=== PATIENT | female | born 1995 | race Caucasian/White ===

== ENCOUNTER 2019-06-11 08:21 | Emergency (ER) | payer MEDICAID ==
[~2019-06-11] VITALS: Ht 154.9 cm; Wt 88.2 kg
[2019-06-11 08:26] VITALS: BP 114/80
[2019-06-11] MEDS ORDERED: AMOX500C2 PO (08:33)
[2019-06-11] MEDS ORDERED: HYDR-4383 PO (08:39)
[2019-06-11] MEDS ORDERED: IBUP-1986 PO (09:03)
== END 2019-06-11 08:58 | disposition home or self-care (01) ==
LOC: ER 08:21
DX: K08.89 Other specified disorders of teeth and supporting structures (principal)
CPT/HCPCS: 99283

== ENCOUNTER 2019-08-05 12:04 | Emergency (ER) | payer MEDICAID ==
[~2019-08-05] VITALS: Ht 154.9 cm; Wt 90.0 kg
[~2019-08-05 12:04] MED LIST: HYDR-4383 PO; IBUP-1986 PO
== END 2019-08-05 13:45 | disposition home or self-care (01) ==
LOC: ER 12:04
DX: Z02.89 Encounter for other administrative examinations (principal); F12.90 Cannabis use, unspecified, uncomplicated; F15.90 Other stimulant use, unspecified, uncomplicated
CPT/HCPCS: 99281

== ENCOUNTER 2020-04-06 19:11 | Emergency (ER) | payer MEDICAID ==
[~2020-04-06] VITALS: Ht 154.9 cm; Wt 72.7 kg
[2020-04-06] MEDS ORDERED: normal saline 1000ml 1,000 ML IV ONE (19:45)
--- NOTE | 2020-04-06 20:05 | NUR ---
POISON CONTROL CONTACTED REGARDING POSSIBLE OVERDOSE OF 15-30 80MG STRATTERA TABLETS. THEY REPORT MOD TOX SYMPTOMS INCLUDING HYPERTENSION, DIZZINESS, TREMORS, AND ANXIETY WITH SEVERE TOX SYMPTOMS INCLUDING SEIZURES, PROLONGED QTC AND QRS WIDENING. RECOMMENDATIONS REPORTED TO AZIZA LAWLER.
[2020-04-06 20:32] LABS: BASOPHILS # (AUTO) 0.1 X10'3 (0-0.2); BASOPHILS % (AUTO) 0.6 % (0-1); EOSINOPHILS # (AUTO) 0.1 X10'3 (0-0.9); EOSINOPHILS % (AUTO) 0.7 % (0-6); HEMATOCRIT 43.2 % (35.0-45.0); HEMOGLOBIN 14.5 g/dl (12.0-16.0); LYMPHOCYTES # (AUTO) 1.8 X10'3 (1.1-4.8); LYMPHOCYTES % (AUTO) 22.5 % (21-51); MEAN CORPUSCULAR HEMOGLOBIN 30.4 PG (27.0-31.0); MEAN CORPUSCULAR HGB CONC 33.7 g/dL (33.0-36.5); MEAN CORPUSCULAR VOLUME 90.3 FL (78-98); MONOCYTES # (AUTO) 0.6 X10'3 (0-0.9); MONOCYTES % (AUTO) 7.6 % (2-12); NEUTROPHILS # (AUTO) 5.6 X10'3 (1.8-7.7); NEUTROPHILS % (AUTO) 68.6 % (42-75); PLATELET COUNT 296 X10'3 (140-440); RED BLOOD COUNT 4.78 X10'6 (4.20-5.60); WHITE BLOOD COUNT 8.1 X10'3 (4.5-11.0)
[2020-04-06 20:44] LABS: ALANINE AMINOTRANSFERASE 28 U/L (12-78); ALBUMIN 4.1 G/DL (3.4-5.0); ALKALINE PHOSPHATASE 65 IU/L (46-116); ANION GAP 14 (8-16); ASPARTATE AMINO TRANSFERASE 29 U/L (10-37); BILIRUBIN,TOTAL 0.4 MG/DL (0.1-1.0); BLOOD UREA NITROGEN 7 MG/DL (7-18); BUN/CREATININE RATIO 7.1 (6.6-38.0); CALCIUM 8.9 MG/DL (8.5-10.1); CHLORIDE 108 MMOL/L (99-107); CREATININE 0.99 MG/DL (0.40-0.90); ETHANOL < 0.010 GM/DL (0.0-0.010); GLUCOSE 101 MG/DL (70-104); POTASSIUM 3.8 MMOL/L (3.5-5.1); SODIUM 145 MMOL/L (135-145); TOTAL CARBON DIOXIDE 23.5 MMOL/L (24-32); TOTAL PROTEIN 8.1 G/DL (6.4-8.2); eGFR 68 ML/MIN
[2020-04-06 20:45] LABS: URINE HCG NEGATIVE (NEG)
[2020-04-06 20:47] LABS: ACETAMINOPHEN < 2.0 UG/ML (10-30)
[2020-04-06 20:58] LABS: URINE AMPHETAMINE SCREEN POSITIVE (Neg); URINE BARBITUATE SCREEN NEGATIVE (Neg); URINE BENZODIAZEPINES SCREEN NEGATIVE (Neg); URINE CANNABINOID SCREEN NEGATIVE (Neg); URINE COCAINE SCREEN NEGATIVE (Neg); URINE METHADONE SCREEN NEGATIVE (Neg); URINE OPIATE SCREEN NEGATIVE (Neg); URINE PHENCYCLIDINE SCREEN NEGATIVE (Neg)
--- NOTE | 2020-04-06 21:00 | NUR ---
ALL BELONGINGS WERE TAKEN HOME BY [place]
--- NOTE | 2020-04-06 21:16 | NUR ---
PER PROVIDER, ORAL FLUIDS OKAY IN PLACE OF IV FLUIDS.
--- NOTE | 2020-04-06 22:41 | NUR ---
POISON CONTROL CALLED FOR UPDATE, REVIEWED LAB AND EKG RESULTS, NO FURTHER RECOMMENDATIONS AT THIS TIME. CONTINUING TO MONITOR
--- NOTE | 2020-04-07 06:40 | NUR ---
PT RESTING WITH EYES CLOSED, EFFORTLESS RESPIRATIONS OBSERVED.
--- NOTE | 2020-04-07 09:10 | NUR ---
[facility] worker Jonatan at bedside assessing pt.
--- NOTE | 2020-04-07 10:12 | NUR ---
FELIPE FROM POISON CONTROL CALLED GAVE RECENT VS. 98.3, 94, 16, 98/60. NO N/V, PT STATES FEELING GOOD. POISON CONTROL SIGNED OFF AT THIS POINT. PT STABLE.
--- NOTE | 2020-04-07 13:00 | NUR ---
sam chan [phone]
--- NOTE | 2020-04-07 13:50 | NUR ---
sam at bedside consoling pt. appropriate
--- NOTE | 2020-04-07 16:51 | NUR ---
KRIS PRAKASH, [facility] ACCEPTED PT AT [address] KELSEY. WILL BE TAKING HER UP AROUND 1900 TODAY
--- NOTE | 2020-04-07 19:35 | NUR ---
One to one with the patient to assess depressive symptoms and self harm risk. The patient currently denies that she is feeling suicidal. She reports hearing voices "all day every day" She then added, "it's mainly God" She denies depression and added "God took my depression away" "They tell me I'm schizophrenia but I don't think I'm schizphrenia at all. I just talk to God" She stated that she has seen God and angels but not in the past two weeks. The patient was unable to name her psychiatric medications. [facility] contacted and requested a list of her medications be sent
--- NOTE | 2020-04-07 19:39 | NUR ---
Per [facility] charge preparation technician they will be here to order picker/assembler the patient at 2100.
[2020-04-07] MEDS ORDERED: ATOM80CA PO (19:41)
[2020-04-07] MEDS ORDERED: ARIP30TA3 PO (19:41)
[2020-04-07 20:19] VITALS: BP 98/56
== END 2020-04-07 20:22 ==
LOC: ER 19:11
DX: T43.212A Poisoning by selective serotonin and norepinephrine reuptake inhibitors, intentional self-harm, initial encounter (principal); F98.8 Other specified behavioral and emotional disorders with onset usually occurring in childhood and adolescence; R41.82 Altered mental status, unspecified; F12.90 Cannabis use, unspecified, uncomplicated; F15.90 Other stimulant use, unspecified, uncomplicated; Z79.899 Other long term (current) drug therapy; Y92.89 Other specified places as the place of occurrence of the external cause
CPT/HCPCS: 36415; 80053; 80305; 80320; 80329; 81025; 85025; 93005; 99285

== ENCOUNTER 2020-04-07 19:18 | Inpatient (IN) | payer MEDICAID ==
[~2020-04-07] VITALS: Ht 154.9 cm; Wt 72.7 kg
[2020-04-07] MEDS ORDERED: ATOM80CA PO (19:41)
[2020-04-07] MEDS ORDERED: ARIP30TA3 PO (19:41)
[2020-04-07] MEDS ORDERED: acetaminophen 325mg tablet PO PRN (21:10)
[2020-04-07] MEDS ORDERED: mag hydrox/Alum hydrox/simeth 30ml oral suspension PO PRN (21:10)
[2020-04-07] MEDS ORDERED: magnesium hydroxide 30ml (MOM) UD suspension PO PRN (21:10)
[2020-04-07] MEDS ORDERED: traZODone 50mg tablet PO PRN (21:10)
[2020-04-07] MEDS ORDERED: loperamide 2mg capsule PO PRN (21:10)
[2020-04-07] MEDS ORDERED: hydrOXYzine 25 MG tablet PO PRN (21:10)
[2020-04-07] MEDS: acetaminophen 325mg tablet PO PRN (21:26)
[2020-04-07] MEDS: NICOTINE POLACRILEX 2 MG LOZENGE BC PRN (21:32)
[2020-04-07 21:33] VITALS: BP 101/69
--- NOTE | 2020-04-07 23:39 | NUR ---
Admit Note: Pt arrived in wheelchair at 2034 from the ED, escorted by [employer] and safety security officer. Pt was admitted for 5150 for dts after ingesting what the pt reported as "the entire bottle" of Strattera medication. Pt is delusional, states that "she has conversations with god," and was in her bathroom talking to god when she decided to overdose. Pt refused to discuss psych hx and would not say if she had attempted suicide in the past. Pt is cooperative with all assessments and care and was allowed to shower before getting oriented to unit. Pt requested tylenol for headache and went to bed afterwards.
[2020-04-08] MEDS: ARIPIPRAZOLE 10 MG TABLET PO SCH (07:42)
[2020-04-08 08:00] VITALS: BP 96/60
[2020-04-08 08:19] LABS: HEMOGLOBIN A1C 5.2 % (4.5-6.2)
[2020-04-08 08:43] LABS: CHOL/HDL RATIO 3.1 (0.00-4.99); CHOLESTEROL 136 MG/DL (0-200); HDL CHOLESTEROL 44 MG/DL (35-60); LDL CHOLESTEROL 84 MG/DL (50-100); TRIGLYCERIDES 58 MG/DL (20-135)
--- NOTE | 2020-04-08 12:10 | NUR ---
Assessment Presenting Issues: Pt admitted following 5150 for concerns associated w/DTS and need a psychosocial assessment to facilitate treatment planning. Interventions: SS met w/pt provided Informed Consent info, pt agreed to participate in assessment interview. SS engaged pt is completing her psychosocial assessment, informed pt about treatment options provided @ [facility], pt signed TP (#9) & ABHISHEK. SS engaged pt in discussion re her desired outcome w/re to this hospitalization. Per discussion, pt would like to "feel better" and go home with her fikarunae. SS also engaged pt in discussion of assessment data and treatment plan goals. Plan: SS will continue to monitor, support & provide dcp when appropriate. Ольга Capps LCSW Addendum: 04/09/20 at 1228 by Ольга Capps Amended: Links added.
[2020-04-08] MEDS: NICOTINE POLACRILEX 2 MG LOZENGE BC PRN (12:56)
[2020-04-08] MEDS ORDERED: heparin 1,000unit/ml 10ml vial 10 ML ONE (16:12)
--- NOTE | 2020-04-08 17:05 | NUR ---
Nursing Progress Note: Yar[facility] Legal hold: 5150 Client on involuntary status for DTS Report received from RN with use of SBAR. Why are they here: Pt was admitted for 5150 for dts after ingesting what the pt reported as "the entire bottle" of Strattera medication. Pt is delusional, states that "she has conversations with god," and was in her bathroom talking to god when she decided to overdose. Assessment What has happened this shift: Received Pt in bed sleeping w/o distress at beginning of shift. Pt cooperative with vitals and pleasant in conversation. Pt took AM meds and had a working knowledge of why she takes them. Pt reported that she gets her meds from Dr Bryan at [facility] and is on the STAR Team. She tolerated assessments well and returned to sleep. Pt slept through breakfast, but did get up and eat lunch. Pt requested a nicotine lozenge, which helped cravings. Pt more visible on unit in afternoon and requested a brush to groom self. Pt admits to overdosing with Straterra. Pt returned to bed in late afternoon and slept. S/I, H/I: Denies A/VH: Denies Sleep: None ADL's: Independent Group attendance: Yes Were meds taken: Yes Any med S/E: None noted or reported Mental Status Exam Appearance: Disheveled in green scrubs Eye contact: Good, direct Behavior: Calm and cooperative Speech: Coherent, normal rate and rhythm Mood: Pleasant Affect: Constricted Thought process: Linear Thought Content: Current Cognition: Alert and oriented X4 Insight: fair Judgment: fair Interventions PRN's used: Nicotine Erika Therapeutic interventions: Establish rapport, 1:1 assessment, provided therapeutic communication and active listening, medication administration/education/monitoring, Q15 min safety checks. Restraints/seclusion/emergency medication: None Justification of Continued Inpatient Treatment: Patient requires interruption of current crisis and medication stabilization to prevent more SA and rehospitalization.
[2020-04-08 19:29] VITALS: BP 102/55
--- NOTE | 2020-04-09 00:20 | NUR ---
Nursing Progress Note: Yaritza Legal hold: 5150 Client on involuntary status for DTS Report received from RN with use of SBAR. Why are they here: Pt was admitted for 5150 for dts after ingesting what the pt reported as "the entire bottle" of Strattera medication. Pt is delusional, states that "she has conversations with god," and was in her bathroom talking to god when she decided to overdose. Assessment What has happened this shift: Pt was in her room resting during shift change. She states she had a pretty good day. Pt was pleasant and cooperative during 1:1 physical assessment and denies any S/I, H/I, depression or anxiety. She states that she feels like shes getting better. She feels a little weak but she believes its from taking all the meds, she is talking about Strattera. Vital signs were wnl. Pt states that she usually takes Abilify at night because it makes her kind of tired, denies any issues with sleep. Pt remained isolative to her room for the majority of the evening, was not observed out of her room. S/I, H/I: Denies A/VH: Denies Sleep: None ADL's: Independent Group attendance: Yes Were meds taken: Yes Any med S/E: None noted or reported Mental Status Exam Appearance: Appropriate, wearing green unit scrubs Eye contact: Good, direct Behavior: Calm and cooperative, pleasant, isolative, somewhat guarded Speech: Normal rate and rhythm, minimal Mood: states she is feeling better Affect: Constricted Thought process: Linear Thought Content: Meds, discharge Cognition: Alert and oriented X4 Insight: fair Judgment: fair Interventions PRN's used: None Therapeutic interventions: Establish rapport, 1:1 assessment, provided therapeutic communication and active listening, medication administration/education/monitoring, Q15 min safety checks. Restraints/seclusion/emergency medication: None Justification of Continued Inpatient Treatment: Patient requires interruption of current crisis and medication stabilization to prevent more SA and rehospitalization.
[2020-04-09 08:00] VITALS: BP 94/66
[2020-04-09] MEDS: ARIPIPRAZOLE 10 MG TABLET PO SCH (08:13)
--- NOTE | 2020-04-09 10:00 | NUR ---
This Clinicians goal for this process group were as follows: (1) Introduce and provide psychoeducation on Duque ABC method. (2) Practice working through Duque ABC method using examples provided by this Clinician. (3) Encourage Patients to process some of their own reoccurring situations utilizing Duque ABC methodology. (4) Process Clients thoughts and reflections on this topic within the group milieu. Patient identified experiencing the following levels of anxiety, depression, and anger/irritability while present in the group milieu. Anxiety: 12/23 Depression: 10/25 Anger/irritability: 10/25 Patient presented as open and cooperative within the group milieu. Patient arrived at the process group about twenty minutes after the start of the group. Patient was dressed in [facility] scrubs. Patient's thought process appeared clear, coherent, and linear. Her thought content was clear and concrete. Patient presented as verbally engaged and nonobtrusive within the group milieu. She answered a few questions, and offered a few comments on the discussion of Duque' ABC methodology, before quietly standing and exiting the milieu after about ten minutes, offering a hand wave and a thank you to this Clinician. She did not return. Andrew Hebert MA, MARY KAY Addendum: 04/09/20 at 1118 by Andrew Hebert Amended: Links added.
[2020-04-09] MEDS: NICOTINE POLACRILEX 2 MG LOZENGE BC PRN (10:26)
--- NOTE | 2020-04-09 12:29 | NUR ---
CM Presenting Issues: Pt's admitted to [facility] on 5150 for DTS concerns. Interventions: SS checked in w/pt and assess her current emotional status, pt reports "I feel better today than yesterday" pt also reported that she attempted to attend group but was not able to stay for the full duration. SS attempted to engage pt in discussion re her recent relapse following [facility] services. Pt continues to deny and minimize her recent relapse and/or current use. Plan: SS will continue to monitor and offer support for pt to talk about her recent relapse and decide how she wants to address it. Ольга Capps LCSW Addendum: 04/09/20 at 1247 by Ольга Capps Amended: Links added.
--- NOTE | 2020-04-09 14:24 | NUR ---
Nursing Progress Note: Legal hold: 5150 Client on involuntary status for DTS Report received from nurse with use of SBAR: ADOLFO Galvan Why are they here: Pt was admitted for 5150 for dts after ingesting what the pt reported as "the entire bottle" of Strattera medication. Pt is delusional, states that "she has conversations with god," and was in her bathroom talking to god when she decided to overdose. Assessment What has happened this shift: Received pt. asleep in bed at the beginning of the shift, she awoke for breakfast. 1:1 completed at bedside, pt. presents as cooperative, fatigued, isolative, and guarded. She is A&O X3, not to month. Pt. denies S/I and V/VILLA, however reports A/VILLA. She states in a discounted way, "I always hear voices, we talk about Godly things." No delusional statements made. Pt. appears to be minimizing any MH s/s. Speech is soft, and pt. answers questions with 1-2 word answers only. Pt. proceeds to isolate in her room throughout the shift, she is encouraged by this wrier to attend group and does attend for a short time, but leaves early. When questioned by this law writer she states, "It just wasn't for me." Later, pt's naeeme was in to visit in the group room, visit appeared to to well. S/I, H/I: Denies A/VH: Pt. reports A/VILLA, states, "I always hear voices, we talk about Godly things." Sleep: Pt. reports she slept restlessly last night, sleep hours are 9 ADL's: Requires some direction from staff Group attendance: Pt. does attend for a short time, but leaves early Were meds taken: Yes Any med S/E: None Mental Status Exam Appearance: Hair disheveled r/t laying in bed, appropriately dressed Eye contact: Poor Behavior: Cooperative, fatigued, isolative, and guarded Speech: Speech is soft, and pt. answers questions with 1-2 word answers only. Mood: Guarded Affect: Flat Thought process: Poverty of thought Thought Content: A/VILLA and nondenominational preoccupation Cognition: A&O X3 (not to month) Insight: Poor Judgment: Poor Interventions PRN's used: Nicotine Lozenge Therapeutic interventions: Introduced self and attempted to establish rapport, maintained a safe and supportive environment, ensured contract for safety, provided clear and simple instructions, monitored behaviors and need for intervention, provided positive encouragement, and maintained Q 15min safety checks. Restraints/seclusion/emergency medication: N/A Justification of Continued Inpatient Treatment: Pt. requires interruption of current crisis, medication adjustments, and a safe and therapeutic environment.
[2020-04-09] MEDS: acetaminophen 325mg tablet PO PRN (17:57)
[2020-04-09 20:31] VITALS: BP 110/84
--- NOTE | 2020-04-09 23:30 | NUR ---
Nursing Progress Note: Yaritza Legal hold: 5150 Client on involuntary status for DTS Report received from ADOLFO Herrera with use of SBAR. Why are they here: Pt was admitted for 5150 for dts after ingesting what the pt reported as "the entire bottle" of Strattera medication. Pt is delusional, states that "she has conversations with god," and was in her bathroom talking to god when she decided to overdose. Assessment What has happened this shift: Pt was in her room resting during shift change. Pt remained isolative to her room for most of the evening. When asked what she had done today, she states I got up, I ate, I tried to go to a group but ended up leaving because I didnt like it. It was stupid. Pt was cooperative during 1:1 physical assessment and denies any S/I, H/I, A/VH depression or anxiety. When asked about this she states nothing out of the ordinary. There were no delusional statements made and she did appear to be responding to internal or external stimuli. Pt appears depressed and guarded even though she is denying all symptoms. She states that she is just tired and wants to go to sleep. Will continue to monitor. S/I, H/I: Denies A/VH: Denies Sleep: None ADL's: Independent Group attendance: Yes Were meds taken: Yes Any med S/E: None noted or reported Mental Status Exam Appearance: Appropriate, wearing green unit scrubs Eye contact: Good, direct Behavior: Calm and cooperative, pleasant, isolative, guarded Speech: Normal rate and rhythm, minimal Mood: Appears depressed Affect: Constricted Thought process: Linear Thought Content: Meds, discharge, conversations with pt were minimal and short Cognition: Alert and oriented X4 Insight: fair Judgment: fair Interventions PRN's used: None Therapeutic interventions: Establish rapport, 1:1 assessment, provided therapeutic communication and active listening, medication administration/education/monitoring, Q15 min safety checks. Restraints/seclusion/emergency medication: None Justification of Continued Inpatient Treatment: Patient requires interruption of current crisis and medication stabilization to prevent more SA and rehospitalization.
[2020-04-10 08:00] VITALS: BP 110/69
[2020-04-10] MEDS: ARIPIPRAZOLE 10 MG TABLET PO SCH (08:00)
--- NOTE | 2020-04-10 10:00 | NUR ---
Group Therapy: Process Group This Clinicians goal for this process group were as follows: (1) Ask scaling questions about Patients current anxiety, depression, and irritability symptoms as a check-in. (2) Provide psychoeducation on emotional and situational stressors. (3) Discuss thoughts and feelings that patients experience when they have experienced an emotional and/or situational stressor. (4) Provide psychoeducation on interventions, as actions patients can take to reduce feelings of emotional escalation caused by situational and emotional stressors. (5) Process Patients thoughts and reflections on this topic within the group milieu. Patient identified experiencing the following levels of anxiety, depression, and anger/irritability while present in the group milieu. Anxiety: 10/25 Depression: 10/25 Anger/irritability: 10/25 Patient presented as open and cooperative within the group milieu. Patient was dressed in [facility] scrubs within the milieu. Patient's thought process was clear, coherent, and linear. Patient's thought content was clear. Patient presented as verbally engaged and nonobtrusive during the process group. Patient made numerous insightful comments about interventions that she would utilize to reduce the acuity of unwanted anxiety symptoms. More specifically, Patient reported that she frequently would try to walk away from a person/situation if it was causing her undue anxiety. Patient referred to this as taking a "Time out," from the situation. Patient reported that she didn't have any active interventions that she used to reduce depression symptoms stating, "I haven't been depressed for six years." Andrew Hebert MA, MARY KAY Addendum: 04/10/20 at 1115 by Andrew Hebert Amended: Links added.
[2020-04-10] MEDS: NICOTINE POLACRILEX 2 MG LOZENGE BC PRN (10:13)
[2020-04-10] MEDS: acetaminophen 325mg tablet PO PRN (10:23)
--- NOTE | 2020-04-10 10:59 | NUR ---
Nursing Progress Note: Legal hold: 5250 Client on involuntary status for DTS Report received from nurse with use of SBAR: ADOLFO Figueroa Why are they here: Pt was admitted for 5150 for dts after ingesting what the pt reported as "the entire bottle" of Strattera medication. Pt is delusional, states that "she has conversations with god," and was in her bathroom talking to god when she decided to overdose. Assessment What has happened this shift: Received pt. asleep in bed at the beginning of the shift, she awoke for breakfast and then returned back to bed. 1:1 completed at bedside, pt. reports ongoing fatigued r/t receiving scheduled Abilify in the morning, she states, "My other doctor prescribes it to me at night, maybe if I take it then I will have more energy today." This information writer spoke to AZIZA Mireles, who was agreeable with changing scheduled dose of Abilify to HS and holding this mornings dose. Pt. continues to deny and S/I, depression, or anxiety, however reports ongoing A/VILLA. When this information writer attempted to question pt. further, she stated in a dismissive manner, "They aren't saying much now." Pt. continues to appear to be minimizing any MH s/s. This information writer encouraged pt. to attend group later and she complied, and reported it was good. PRN Tylenol requested for tooth pain, will continue to monitor. Pt. retreated back to bed after group and continues to be withdrawn and isolative throughout the shift. Pt. reports no BM since 04/07/20, however denies any discomfort and reports this is normal for her. She is passing flatus, and refuses any intervention at this time, will endorse to Noc shift. S/I, H/I: Denies A/VH: Pt. ongoing A/VILLA, however refuses to discuss them Sleep: Pt. reports she slept well, sleep hours are 10 ADL's: Requires some direction from staff Group attendance: Yes Were meds taken: Yes Any med S/E: Fatigue r/t Abilify scheduled in the AM, AZIZA Mireles rescheduled for HS Mental Status Exam Appearance: Hair up in a pony tail, appropriately dressed Eye contact: Poor to fair Behavior: Cooperative, fatigued, isolative, and guarded Speech: Speech is soft, and pt. answers questions with 1-2 word answers only. Mood: Guarded Affect: Flat Thought process: Poverty of thought with some disorganization Thought Content: A/VILLA, appears to minimizing s/s Cognition: A&O X3 (not to month) Insight: Poor Judgment: Poor Interventions PRN's used: Nicotine Lozenge and Tylenol Therapeutic interventions: Maintained a safe and supportive environment, ensured contract for safety, provided clear and simple instructions, monitored behaviors and need for intervention, provided positive encouragement and encouraged participation on the unit, and maintained Q 15min safety checks. Restraints/seclusion/emergency medication: N/A Justification of Continued Inpatient Treatment: Pt. continues to require medication adjustments and a safe and therapeutic environment.
[2020-04-10] MEDS ORDERED: ATOM80CA PO (14:34)
[2020-04-10] MEDS ORDERED: TRAZ-251 PO (14:34)
[2020-04-10] MEDS ORDERED: NICO-668 BC (14:34)
--- NOTE | 2020-04-10 14:53 | NUR ---
Assessment Presenting Issues: Pt's on 5249, attending PA request SS support to assess current risk of suicide to facilitate d/c. Interventions: SS met w/pt and engaged her in completing the [place]-Suicide Severity Rating Scale-Inpatient D/C Screener to assess current risks associated w/suicide. Per screening pt reported no ideations, thoughts or plans of suicide, and pt's not demonstrated any bxs associated w/suicide of self harm. Therefore, current risks associated with suicide/self harm are very low. SS also engaged pt & her fiancee in Safety planning, per session, pt will call her best friend and fiancee when she excperience increase of depression and stress as spending time with them helps her to feel better and decreases negative self thoughts. Pt's saritarobbie agreed to lock up meds (both prescription & OTC), pt's outpatient therapist will assess continue need for safety plan on 04/15. Plan: Pt to d/c this afternoon, aurora will cloth picker. Ольга Capps LCSW Addendum: 04/10/20 at 1508 by Ольга Capps SS Amended: Links added.
--- NOTE | 2020-04-10 15:34 | NUR ---
Discharge Note: Pt. discharged from the unit at 1430 accompanied by this writer technical publications to waiting vehicle. She is being picked-up by her fiance who will be driving her home. Belongings returned to pt., and discharge instructions, medications, and follow-up reviewed; pt. reports understanding. She is able to contract for safety. Pt. sent with smoking cessation, nicotine lozenges, and a hard-copy of her prescriptions to be filled at her pharmacy. Addendum: 04/10/20 at 1540 by Mercedes Moreno RN Pt. not sent with a prescription for Abilify, she says she has this medication already at home.
--- NOTE | 2020-04-10 15:35 | NUR ---
DCP/Discharge Presenting Issues: Pt's on 5249, attending PA request SS assistance to assess continue need for 5249. Interventions: SS joined [facility] ERVIN and engaged pt in assessment of current emotional & MH state. Per session, pt denies SI/HI/and depresion. Pt's affect appears to be alot better than yesterday, pt acknowledges AH-hearing God's voice, this has been a chronic issue for pt and she is not distressed over it. Pt appears to be in denial w/re to current life stressors and her CFS case, still believing that she can continue to see her children. Per consultation w/AZIZA Mireles, pt no longer meets 5250 criteria and will be d/c-ing today. Plan: SS to contact aurora and engage him in safety planning activities, SS to contact [facility] and coordinate post-hospital appointments. Pt to d/c this afternoon. Ольга Capps LCSW Addendum: 04/10/20 at 1549 by Ольга Capps SS Amended: Links added.
[2020-04-10] MEDS ORDERED: ARIPIPRAZOLE 10 MG TABLET PO SCH (21:00)
== END 2020-04-10 15:30 | disposition home or self-care (01) | DRG 760 ==
LOC: ADULT MH 20:21
PROVIDERS: ADMIT Psychiatry & Neurology Psychiatry; ATTEND Psychiatry & Neurology Psychiatry
DX: F98.8 Other specified behavioral and emotional disorders with onset usually occurring in childhood and adolescence (principal); E43 Unspecified severe protein-calorie malnutrition; R45.851 Suicidal ideations; F20.9 Schizophrenia, unspecified; F31.9 Bipolar disorder, unspecified; F15.90 Other stimulant use, unspecified, uncomplicated; F17.210 Nicotine dependence, cigarettes, uncomplicated; T43.212A Poisoning by selective serotonin and norepinephrine reuptake inhibitors, intentional self-harm, initial encounter; E66.9 Obesity, unspecified; Z79.899 Other long term (current) drug therapy; Z91.5 Personal history of self-harm; Z68.30 Body mass index [BMI] 30.0-30.9, adult; Y92.89 Other specified places as the place of occurrence of the external cause; Z71.6 Tobacco abuse counseling; Z98.51 Tubal ligation status
CPT/HCPCS: 36415; 80061; 83036; J1644

== ENCOUNTER 2020-06-02 19:32 | Emergency (ER) | payer MEDICAID ==
[~2020-06-02] VITALS: Ht 142.2 cm; Wt 64.6 kg
[~2020-06-02 19:32] MED LIST changes: +ARIP30TA3 PO; +ATOM80CA PO; -HYDR-4383 PO; -IBUP-1986 PO; +NICO-668 BC; +TRAZ-251 PO
--- NOTE | 2020-06-02 19:39 | NUR ---
Spoke to Luis Felipe Camacho regarding patient and condition. He requests poison control be contacted. Poison control recommends EKG, CMP, CK, temperature trending, and possible CXR with 4 hours of observation. Luis Felipe Camacho notified of poison control recommendations.
--- NOTE | 2020-06-02 19:46 | NUR ---
Pt. in C-Collar, on exam no pain or tenderness in neck. Addendum: 06/02/20 at 1950 by ANNE-MARIE AZIZA Camacho discontinued C-Collar, C-Collar removed.
--- NOTE | 2020-06-02 20:20 | NUR ---
RELIEVING RN FOR BREAK, GAVE PT 12 OZ OF APPLE JUICE, UNABLE TO GIVE URINE SAMPLE AT THIS TIME
--- NOTE | 2020-06-02 20:55 | NUR ---
Pt. is rambling and talking to self.
[2020-06-02 21:00] LABS: BASOPHILS % (AUTO) 0.3 % (0-1); EOSINOPHILS # (AUTO) 0.1 X10'3 (0-0.9); EOSINOPHILS % (AUTO) 1.2 % (0-6); HEMOGLOBIN 15.1 g/dl (12.0-16.0); LYMPHOCYTES # (AUTO) 1.4 X10'3 (1.1-4.8); LYMPHOCYTES % (AUTO) 20.4 % (21-51); MEAN CORPUSCULAR HEMOGLOBIN 30.4 PG (27.0-31.0); MEAN CORPUSCULAR HGB CONC 33.6 g/dL (33.0-36.5); MEAN CORPUSCULAR VOLUME 90.4 FL (78-98); MEAN PLATELET VOLUME 8.4 FL (7.4-10.4); MONOCYTES # (AUTO) 0.5 X10'3 (0-0.9); MONOCYTES % (AUTO) 7.6 % (2-12); NEUTROPHILS # (AUTO) 4.8 X10'3 (1.8-7.7); NEUTROPHILS % (AUTO) 70.5 % (42-75); PLATELET COUNT 275 X10'3 (140-440); RED BLOOD COUNT 4.98 X10'6 (4.20-5.60); RED CELL DISTRIBUTION WIDTH 12.7 % (11.5-14.5); WHITE BLOOD COUNT 6.9 X10'3 (4.5-11.0)
[2020-06-02 21:13] LABS: ALANINE AMINOTRANSFERASE 35 U/L (12-78); ALBUMIN 4.1 G/DL (3.4-5.0); ALKALINE PHOSPHATASE 76 IU/L (46-116); ANION GAP 9 (8-16); ASPARTATE AMINO TRANSFERASE 15 U/L (10-37); BILIRUBIN,TOTAL 0.6 MG/DL (0.1-1.0); BLOOD UREA NITROGEN 5 MG/DL (7-18); BUN/CREATININE RATIO 5.9 (6.6-38.0); CALCIUM 9.3 MG/DL (8.5-10.1); CHLORIDE 105 MMOL/L (99-107); CREATININE 0.85 MG/DL (0.40-0.90); GLUCOSE 112 MG/DL (70-104); POTASSIUM 4.1 MMOL/L (3.5-5.1); SODIUM 141 MMOL/L (135-145); TOTAL CARBON DIOXIDE 27.1 MMOL/L (24-32); TOTAL PROTEIN 8.4 G/DL (6.4-8.2); eGFR 80 ML/MIN
[2020-06-02 21:15] LABS: CREATINE KINASE 49 U/L (26-192); ETHANOL < 0.010 GM/DL (0.0-0.010)
[2020-06-02 21:22] LABS: ACETAMINOPHEN < 2.0 UG/ML (10-30)
[2020-06-02 21:43] VITALS: BP 124/80
== END 2020-06-02 21:44 ==
LOC: ER 19:32
DX: F15.129 Other stimulant abuse with intoxication, unspecified (principal); F12.90 Cannabis use, unspecified, uncomplicated; Z72.89 Other problems related to lifestyle; Z79.899 Other long term (current) drug therapy; V87.7XXA Person injured in collision between other specified motor vehicles (traffic), initial encounter; Y93.89 Activity, other specified; Y92.488 Other paved roadways as the place of occurrence of the external cause; Y99.8 Other external cause status
CPT/HCPCS: 36415; 71045; 80053; 80320; 80329; 82550; 85025; 99284

== ENCOUNTER 2020-11-12 08:07 | Emergency (ER) | payer MEDICAID ==
[~2020-11-12] VITALS: Ht 149.9 cm; Wt 57.5 kg
[2020-11-12 08:09] VITALS: BP 127/60
[2020-11-12] MEDS ORDERED: acetaminophen 325mg tablet PO ONE (09:20)
[2020-11-12] MEDS ORDERED: ibuprofen tablet 400 MG TABLET PO ONE (09:25)
== END 2020-11-12 18:42 | disposition left against medical advice (07) ==
LOC: ER 08:07
DX: T71.9XXA Asphyxiation due to unspecified cause, initial encounter (principal); M79.89 Other specified soft tissue disorders; F12.90 Cannabis use, unspecified, uncomplicated; F15.90 Other stimulant use, unspecified, uncomplicated; Z72.89 Other problems related to lifestyle; Z79.899 Other long term (current) drug therapy; X58.XXXA Exposure to other specified factors, initial encounter; Y93.89 Activity, other specified; Y92.89 Other specified places as the place of occurrence of the external cause; Y99.8 Other external cause status
CPT/HCPCS: 99282